=== PATIENT | female | born 2000 | race Caucasian/White ===

== ENCOUNTER 2020-04-09 06:47 | Day surgery (SDC) | payer BC ==
[~2020-04-09] VITALS: Ht 157.5 cm; Wt 47.9 kg
[2020-04-09] MEDS ORDERED: NONE PER PT (07:27)
[2020-04-09] MEDS ORDERED: ONDANSETRON 2MG/ML, 2ML IVPush PRN (07:30)
[2020-04-09] MEDS ORDERED: HYDROmorphone 1 MG/ML, 1ML INJ IVPush PRN (07:30)
[2020-04-09] MEDS ORDERED: hydrALAzine 20 MG/ML, 1ML IV PRN (07:30)
[2020-04-09] MEDS ORDERED: MEPERIDINE/PF 25MG/0.5ML IVPush PRN (07:30)
[2020-04-09] MEDS ORDERED: LACTATED RINGERS 1,000 ML IV SCH (07:30)
[2020-04-09] MEDS ORDERED: LABETALOL 5MG/ML, 20ML IV PRN (07:30)
[2020-04-09] MEDS ORDERED: CHLORHEXIDINE 15 ML UDC MM ONE (07:30)
[2020-04-09] MEDS ORDERED: OXYcodone 5 MG/5 ML ORAL.SOL UDC PO PRN (07:30)
[2020-04-09] MEDS ORDERED: FENTANYL PF 100 MCG/2ML IV PRN (07:30)
[2020-04-09] MEDS ORDERED: PROMETHAZINE 25 MG/ML, 1ML IVPush PRN (07:30)
[2020-04-09 07:36] VITALS: BP 123/80
[2020-04-09 07:36] LABS: HCG UR SG 1.024 (1.003-1.030)
[2020-04-09] MEDS ORDERED: RIVA15TA PO (08:00)
[2020-04-09] MEDS ORDERED: FENTANYL PF 100 MCG/2ML ONE (08:12)
[2020-04-09] MEDS ORDERED: MIDAZOLAM 1 MG/ML, 2ML ONE (08:12)
[2020-04-09] MEDS ORDERED: ROCURONIUM 10 MG/ML,10ML ONE (08:35)
[2020-04-09] MEDS ORDERED: DEXAMETHASONE 4 MG/ML, 1ML ONE ×3 (08:36→09:28)
[2020-04-09] MEDS ORDERED: PROPOFOL 10 MG/ML, 20ML ONE (08:41)
[2020-04-09] MEDS ORDERED: ONDANSETRON 2MG/ML, 2ML ONE ×2 (08:42→09:31)
[2020-04-09] MEDS ORDERED: OMNIPAQUE 350 MG/ML, 50 ML BOTTLE ONE (10:22)
== END 2020-04-09 10:10 | disposition home or self-care (01) ==
LOC: OUT 06:47
PROVIDERS: ATTEND Internal Medicine Geriatric Medicine
DX: K91.89 Other postprocedural complications and disorders of digestive system (principal); K80.20 Calculus of gallbladder without cholecystitis without obstruction; K83.2 Perforation of bile duct; Z20.828 Contact with and (suspected) exposure to other viral communicable diseases; Z79.899 Other long term (current) drug therapy; Z98.890 Other specified postprocedural states
CPT/HCPCS: 43275; 74328; 81025; 87635; C1769; J1100; J2250; J2405; J2704; J3010; J7120; Q9967